=== PATIENT | male | born 1950 | race Caucasian/White ===

== ENCOUNTER 2016-09-30 17:22 | Emergency (ER) | payer MEDICARE ==
[~2016-09-30] VITALS: Ht 170.2 cm; Wt 60.0 kg
[~2016-09-30 17:22] MED LIST: SODI1 PO; SULF-154 PO; TUMS500C PO
[2016-09-30 17:25] VITALS: BP 141/78; PULSE 68; RESP 18; TEMP 97.8; O2SAT 97
[2016-09-30] MEDS ORDERED: THIA100T PO (17:35)
[2016-09-30] MEDS ORDERED: ALBUAER3 INH (17:35)
[2016-09-30] MEDS ORDERED: FOLI1TAB4 PO (17:35)
[2016-09-30] MEDS ORDERED: MOBI7.5T PO (17:35)
[2016-09-30] MEDS ORDERED: LISI-515 PO (17:35)
[2016-09-30] MEDS ORDERED: IPRA17I INH (17:35)
[2016-09-30] MEDS ORDERED: ACETAMINOPHEN/HYDROcodone 325 MG/5 MG TAB PO ONE (18:30)
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
[2016-09-30] MEDS ORDERED: DICL75TA PO (20:59)
[2016-09-30] MEDS ORDERED: AMOX875T PO (20:59)
[2016-09-30] MEDS ORDERED: SUDA30TA2 PO (20:59)
== END 2016-09-30 22:38 | disposition home or self-care (01) ==
LOC: NEDAMB 17:22 → NEPE 22:38
DX: S02.40CA Maxillary fracture, right side, initial encounter for closed fracture (principal); S20.211A Contusion of right front wall of thorax, initial encounter; Y09 Assault by unspecified means; Z59.0 Homelessness
CPT/HCPCS: 70450; 70486; 71101; 73030

== ENCOUNTER 2017-01-20 02:11 | Emergency (ER) | payer MEDICARE, OTHER ==
[~2017-01-20 02:11] MED LIST changes: +ALBUAER3 INH; +AMOX875T PO; +DICL75TA PO; +FOLI1TAB4 PO; +IPRA17I INH; +LISI-515 PO; +MOBI7.5T PO; -SODI1 PO; +SUDA30TA2 PO; -SULF-154 PO; +THIA100T PO; -TUMS500C PO
[2017-01-20 02:14] VITALS: BP 140/86; PULSE 70; RESP 15; TEMP 97.8; O2SAT 99
[2017-01-20] MEDS ORDERED: RESP: ALBUTEROL 2.5 MG/IPRATROPIUM 0.5 MG NEB (SCH) INH ONE (04:15)
[2017-01-20] MEDS ORDERED: VENTAER INH (04:26)
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
[2017-01-20 06:01] VITALS: BP 148/80
== END 2017-01-20 06:15 | disposition home or self-care (01) ==
LOC: NEPE 02:11
DX: J44.9 Chronic obstructive pulmonary disease, unspecified (principal); K40.21 Bilateral inguinal hernia, without obstruction or gangrene, recurrent
CPT/HCPCS: 94664; 99284

== ENCOUNTER 2017-07-21 16:45 | Emergency (ER) | payer OTHER ==
[~2017-07-21] VITALS: Ht 170.2 cm; Wt 60.0 kg
[~2017-07-21 16:45] MED LIST changes: +VENTAER INH
[2017-07-21 17:07] VITALS: BP 128/80; PULSE 81; RESP 17; TEMP 99.1; O2SAT 98
[2017-07-21] MEDS ORDERED: SODIUM CHLOR 0.9% 1000 ML INJ 1,000 ML IV ONE ×2 (18:01)
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
[2017-07-21] MEDS ORDERED: SODIUM CHLORIDE 0.9% FLUSH 10 ML FLUSH IVF PRN ×2 (18:15)
[2017-07-21] MEDS ORDERED: levETIRAcetam INJ 500 MG in SODIUM CHLORIDE 0.9% INJ 100 ML IV ONE ×4 (18:15)
[2017-07-21 18:33] VITALS: O2SAT 99
--- NOTE | 2017-07-21 18:33 | RADRPT ---
EXAM DATE/TIME: 07/21/2017 18:11 [facility] COMPARISON: CT BRAIN W/O CONTRAST, September 30, 2016, 19:20. INDICATIONS : Seizure. RADIATION DOSE: 56.35 CTDIvol (mGy) MEDICAL HISTORY : Cardiovascular disease. Chronic obstructive pulmonary disease. Hypertension. SURGICAL HISTORY : None. ENCOUNTER: Initial ACUITY: 1 day PAIN SCALE: 0/10 LOCATION: cranial TECHNIQUE: Multiple contiguous axial images were obtained of the head. Using automated exposure control and adj ustment of the mA and/or kV according to patient size, radiation dose was kept as low as reasonably a chievable to obtain optimal diagnostic quality images. DICOM format image data is available electro nically for review and comparison. FINDINGS: CEREBRUM: The ventricles are normal for age. No evidence of midline shift, mass lesion, hemorrhage or acute in farction. No extra-axial fluid collections are seen. POSTERIOR FOSSA: The cerebellum and brainstem are intact. The 4th ventricle is midline. The cerebellopontine angle i s unremarkable. EXTRACRANIAL: The visualized portion of the orbits is intact. SKULL: The calvaria is intact. No evidence of skull fracture. CONCLUSION: Negative noncontrast CT Ousmane Pickering MD on July 21, 2017 at 18:29 Board Certified Radiologist. This report was verified electronically.
[2017-07-21 18:45] LABS: AUTOMATED NEUTROPHIL # 7.7 TH/MM3 (1.8-7.7); BASOPHIL % 0.4 % (0.0-2.0); EOSINOPHIL # 0.1 TH/MM3 (0-0.4); EOSINOPHIL % 1.1 % (0.0-4.0); HEMATOCRIT 36.9 % (39.0-51.0); HEMOGLOBIN 12.7 GM/DL (13.0-17.0); LYMPH % 13.5 % (9.0-44.0); LYMPHOCYTE # 1.3 TH/MM3 (1.0-4.8); MEAN CELL VOLUME 90.2 FL (80.0-100.0); MEAN CORPUSCULAR HEMOGLOBIN 31.1 PG (27.0-34.0); MEAN CORPUSCULAR HGB CONC 34.4 % (32.0-36.0); MEAN PLATELET VOLUME 7.3 FL (7.0-11.0); MONO % 6.4 % (0.0-8.0); MONOCYTE # 0.6 TH/MM3 (0-0.9); NEUT % 78.6 % (16.0-70.0); PLATELET COUNT 329 TH/MM3 (150-450); RED BLOOD COUNT 4.09 MIL/MM3 (4.50-5.90); RED CELL DISTRIBUTION WIDTH 13.9 % (11.6-17.2); WHITE BLOOD COUNT 9.7 TH/MM3 (4.0-11.0)
[2017-07-21 18:52] LABS: ALBUMIN 2.5 GM/DL (3.4-5.0); AST (GOT) 22 U/L (15-37); BICARBONATE 26.3 MEQ/L (21.0-32.0); BLOOD UREA NITROGEN 14 MG/DL (7-18); CALCIUM 8.2 MG/DL (8.5-10.1); CHLORIDE 103 MEQ/L (98-107); CREATININE 0.72 MG/DL (0.60-1.30); GLOMERULAR FILTRATION RATE 109 ML/MIN (>89); GLUCOSE,RANDOM 84 MG/DL (74-106); SODIUM (NA) 137 MEQ/L (136-145)
[2017-07-21 18:53] LABS: ALT (GPT) 21 U/L (12-78)
[2017-07-21 18:55] LABS: ALKALINE PHOSPHATASE 27 U/L (45-117); TOTAL BILIRUBIN ADULT 0.4 MG/DL (0.2-1.0); TOTAL PROTEIN 5.6 GM/DL (6.4-8.2)
[2017-07-21] MEDS ORDERED: LEVE500 PO ×2 (19:17)
[2017-07-21 19:22] LABS: AMORPHOUS SEDIMENT, URINE RARE; BILIRUBIN, URINE NEG (NEG); BLOOD, URINE NEG (NEG); GLUCOSE,URINE NEG (NEG); KETONE, URINE NEG (NEG); NITRITE,URINE NEG (NEG); URINE COLOR YELLOW (YELLW/STRAW); URINE LEUKOCYTE ESTERASE NEG (NEG)
[2017-07-21 20:05] VITALS: BP 124/69; PULSE 80; RESP 20; TEMP 98.7; O2SAT 98
--- NOTE | 2017-07-22 09:21 | EKG ---
Date Performed: 07/21/2017 Time Performed: 18:43:37 PTAGE: 66 years EKG: Sinus rhythm NORMAL ECG Compared to prior tracing no significant change PREVIOUS TRACING : 10/31/2015 10.18 DOCTOR: Armani Rodriguez Interpretating Date/Time 07/22/2017 09:19:14
== END 2017-07-21 20:36 | disposition home or self-care (01) ==
LOC: NEPE 16:45
DX: R56.9 Unspecified convulsions (principal); J44.9 Chronic obstructive pulmonary disease, unspecified; I10 Essential (primary) hypertension; Z72.0 Tobacco use
CPT/HCPCS: 70450; 80053; 81001; 85025; 93005; 96374; 99285; J1953; J7030

== ENCOUNTER 2017-08-18 12:07 | Emergency (ER) | payer OTHER ==
[~2017-08-18] VITALS: Ht 172.7 cm; Wt 59.0 kg
[~2017-08-18 12:07] MED LIST changes: -AMOX875T PO; -DICL75TA PO; -FOLI1TAB4 PO; +LEVE500 PO; -MOBI7.5T PO; -SUDA30TA2 PO; -THIA100T PO
[2017-08-18 12:16] VITALS: BP 150/86; PULSE 83; RESP 17; TEMP 97.8; O2SAT 98
[2017-08-18 12:26] VITALS: RESP 17; O2SAT 98
[2017-08-18] MEDS ORDERED: SODIUM CHLORIDE 0.9% FLUSH 10 ML FLUSH IVF PRN (12:30)
[2017-08-18] MEDS ORDERED: levETIRAcetam INJ 100 ML IV ONE (12:30)
--- NOTE | 2017-08-18 12:31 | PD ---
HPI Chief Complaint: Seizure Time Seen by Provider: 12:20 Travel History International Travel<30 days: No Contact w/Intl Traveler<30days: No Traveled to known affect area: No History of Present Illness HPI patient had tonic clonic seizure in bathroom of [facility], brought in by evac. patient is supposed to be on keppra but has been out for 3 weeks. PFSH Past Medical History Bipolar Disorder: Yes Cancer: No Cardiovascular Problems: Yes (HBP) COPD: Yes Diminished Hearing: No Endocrine: No Genitourinary: No Hiatal Hernia: Yes Hypertension: Yes Inguinal Hernia: Yes Implanted Vascular Access Dvce: No Musculoskeletal: Yes (BURSITIS) Neurologic: Yes Psychiatric: Yes (PTSD) Respiratory: Yes (COPD) Integumentary: Yes (GANGRENE BILAT FEET) Seizures: Yes Tetanus Vaccination: > 5 Years Influenza Vaccination: Yes Past Surgical History Tonsillectomy: Yes Other Surgery: Yes (HERNIA REPAIR) Social History Alcohol Use: Yes (3-4 beers daily ) Tobacco Use: Yes (pack a day) Substance Use: Yes (marijuana) Allergies-Medications (Allergen,Severity, Reaction): Coded Allergies: No Known Allergies (Verified Allergy, Unknown, 07/21/17) Reported Meds & Prescriptions Reported Meds & Active Scripts Active Keppra (Levetiracetam) 500 Mg Tab 500 Mg PO BID Ventolin Hfa 18 GM Inh (Albuterol Sulfate) 90 Mcg/Act Aer 2 Puff INH Q4H PRN Reported Lisinopril 20 Mg Tab 20 Mg PO DAILY Atrovent HFA 12.9 GM Inh (Ipratropium Cascilla) 17 Mcg/Act Aer 1 Puff INH QID PRN Proair Hfa 8.5 GM Inh (Albuterol Sulfate) 90 Mcg/Act Aer 1 Puff INH QID NEB 108 mcg/actuation Review of Systems Except as stated in HPI: all other systems reviewed are Neg General / Constitutional: No: Fever Eyes: No: Visual changes HENT: No: Headaches Cardiovascular: No: Chest Pain or Discomfort Respiratory: No: Shortness of Breath Gastrointestinal: No: Abdominal Pain Genitourinary: No: Dysuria Musculoskeletal: No: Pain Skin: No Rash Neurologic: Positive: Seizures Psychiatric: No: Depression Endocrine: No: Polydipsia Hematologic/Lymphatic: No: Easy Bruising Physical Exam Narrative GENERAL: SKIN: Warm and dry. small nasal abrasion from fall without laceration. HEAD: Atraumatic. Normocephalic. EYES: Pupils equal and round. No scleral icterus. No injection or drainage. ENT: No nasal bleeding or discharge. Mucous membranes pink and moist. NECK: Trachea midline. No JVD. CARDIOVASCULAR: Regular rate and rhythm. RESPIRATORY: No accessory muscle use. Clear to auscultation. Breath sounds equal bilaterally. GASTROINTESTINAL: Abdomen soft, non-tender, nondistended. MUSCULOSKELETAL: Extremities without clubbing, cyanosis, or edema. No obvious deformities. NEUROLOGICAL: Awake and alert. No obvious cranial nerve deficits. Motor grossly within normal limits. Five out of 5 muscle strength in the arms and legs. Normal speech. PSYCHIATRIC: Appropriate mood and affect; insight and judgment normal. Data Data Last Documented VS Vital Signs Date Time Temp Pulse Resp B/P (MAP) Pulse Ox O2 Delivery O2 Flow Rate FiO2 08/18/17 13:25 97.8 76 16 140/80 (100) 99 Room Air Orders Orders Blood Glucose (08/18/17 12:21) Ecg Monitoring (08/18/17 12:21) Iv Access Insert/Monitor (08/18/17 12:21) Oximetry (08/18/17 12:21) Sodium Chloride 0.9% Flush (Ns Flush) (08/18/17 12:30) Levetiracetam 1000 Mg Inj (Keppra 1000 M (08/18/17 12:30) Ct Brain W/O Iv Contrast(Rout) (08/18/17 12:21) MDM Medical Decision Making Medical Screen Exam Complete: Yes Emergency Medical Condition: Yes Medical Record Reviewed: Yes Differential Diagnosis ich v sinusitis v skull fx v noncompliant Diagnosis Primary Impression: Seizure Additional Impressions: medication noncompliance Sinusitis Qualified Codes: J01.00 - Acute maxillary sinusitis, unspecified Patient Instructions: General Instructions, Generalized Tonic Clonic Seizures ( ED), Sinusitis (GEN) Scripts Amoxicillin-Clavulanate (Augmentin) 500-125 mg Tab 500 MG PO BID for Infection for 10 Days, #20 TAB 0 Refills Prov: Armando Estrella MD 08/18/17 Levetiracetam (Keppra) 500 Mg Tab 500 MG PO BID for Control Seizures, #60 TAB 1 Refill Prov: Armando Estrella MD 08/18/17 Disposition: 01 DISCHARGE HOME Condition: Stable Armando Estrella MD Aug 18, 2017 12:31
[2017-08-18 13:25] VITALS: BP 140/80; PULSE 76; RESP 16; TEMP 97.8; O2SAT 99
--- NOTE | 2017-08-18 13:46 | RADRPT ---
EXAM DATE/TIME: 08/18/2017 13:33 [facility] COMPARISON: CT BRAIN W/O CONTRAST, July 21, 2017, 18:11. INDICATIONS : Seizure today. RADIATION DOSE: 33.47 CTDIvol (mGy) MEDICAL HISTORY : Seizures. Hypertension. Chronic obstructive pulmonary disease. SURGICAL HISTORY : None. ENCOUNTER: Initial ACUITY: 1 day PAIN SCALE: 3/10 LOCATION: cranial TECHNIQUE: Multiple contiguous axial images were obtained of the head. Using automated exposure control and adj ustment of the mA and/or kV according to patient size, radiation dose was kept as low as reasonably a chievable to obtain optimal diagnostic quality images. DICOM format image data is available electro nically for review and comparison. FINDINGS: CEREBRUM: The ventricles are normal for age. No evidence of midline shift, mass lesion, hemorrhage or acute in farction. No extra-axial fluid collections are seen. POSTERIOR FOSSA: The cerebellum and brainstem are intact. The 4th ventricle is midline. The cerebellopontine angle i s unremarkable. EXTRACRANIAL: The visualized portion of the orbits is intact. There is a small air-fluid level left maxillary sinus with mild mucosal thickening. SKULL: The calvaria is intact. No evidence of skull fracture. CONCLUSION: 1. No acute hemorrhage or mass effect. 2. Small air-fluid level mucosal thickening in left maxillary sinus most consistent with acute sinusi tis. Ousmane Pickering MD on August 18, 2017 at 13:43 Board Certified Radiologist. This report was verified electronically.
[2017-08-18] MEDS ORDERED: AUGM500T7 PO (14:00)
[2017-08-18] MEDS ORDERED: LEVE500 PO (14:00)
[2017-08-18 15:00] VITALS: BP 130/77; TEMP 97.8
== END 2017-08-18 15:00 | disposition home or self-care (01) ==
LOC: NEPD 12:07
DX: R56.9 Unspecified convulsions (principal); J01.00 Acute maxillary sinusitis, unspecified; J44.9 Chronic obstructive pulmonary disease, unspecified; I10 Essential (primary) hypertension; Z72.0 Tobacco use
CPT/HCPCS: 70450; 96365; 99285; J1953